=== PATIENT | male | born 1980 | race Two or more races ===

== ENCOUNTER 2022-03-13 06:05 | Emergency (ER) | payer BC ==
[~2022-03-13] VITALS: Ht 182.9 cm; Wt 98.4 kg
--- NOTE | 2022-03-13 06:25 | NUR ---
BIBS PT A/OX3, C/O "RACING HEART" PT STATES HAS A HISTORY OF ANXIETY. DENIES CP/SOB.
[2022-03-13] MEDS ORDERED: LORAZEPAM 1 MG TABLET PO ONE ×2 (06:30→07:30)
[2022-03-13] MEDS ORDERED: LORAZEPAM 0.5 MG TABLET ONE ×2 (06:32→07:10)
--- NOTE | 2022-03-13 07:21 | NUR ---
PT DECLINED IV TO BE STARTED AT THIS TIME. STATES, "I WILL WAIT TO SEE IF MEDICTION (ATIVAN) WORKS."
[2022-03-13 07:23] LABS: BASOPHILS # (AUTO) 0.1 K/uL (0.0-0.2); BASOPHILS % (AUTO) 1.2 % (0.0-2.0); EOSINOPHILS % (AUTO) 6.8 % (0.0-6.0); HEMATOCRIT 41 % (39-51); HEMOGLOBIN 14.2 g/dL (13.5-17.5); LYMPHOCYTES # (AUTO) 1.6 K/uL (0.8-4.8); LYMPHOCYTES % (AUTO) 28.3 % (20.0-44.0); MEAN CORPUSCULAR HGB CONC 35 g/dl (31.0-36.0); MEAN CORPUSCULAR VOLUME 83 fL (80-96); MONOCYTES # (AUTO) 0.5 K/uL (0.1-1.30); MONOCYTES % (AUTO) 8.6 % (2.0-12.0); NEUTROPHILS # (AUTO) 3.2 K/uL (1.8-8.9); NEUTROPHILS % (AUTO) 55.1 % (43.0-81.0); PLATELET COUNT (AUTO) 239 K/uL (150-450); RED BLOOD CELL COUNT(AUTO) 4.88 MIL/uL (4.5-6.0); WHITE BLOOD COUNT (AUTO) 5.8 K/uL (4.3-11.0)
--- NOTE | 2022-03-13 07:27 | NUR ---
LINE MANAGER AT BEDSIDE
[2022-03-13 07:54] LABS: CALCIUM, SERUM 8.8 mg/dL (8.5-10.1); CARBON DIOXIDE 24 mmol/L (21-32); CHLORIDE 106 mmol/L (98-107); CREATININE 0.8 mg/dL (0.6-1.3); GLUCOSE 191 mg/dL (74-106); POTASSIUM 3.5 mmol/L (3.5-5.1); SODIUM SERUM 140 mmol/L (136-145); UREA NITROGEN, BLOOD 11 mg/dL (7-18)
--- NOTE | 2022-03-13 08:08 | NUR ---
Patient discharged to home in stable condition. Written and verbal after care instructions given. Patient verbalizes understanding of instruction.
[2022-03-13 08:09] VITALS: BP 150/89
[2022-03-13 09:17] LABS: THYROID STIMULATING HORMONE 1.259 uIU/mL (0.358-3.74)
== END 2022-03-13 08:09 | disposition home or self-care (01) ==
LOC: ER 06:15
DX: F41.9 Anxiety disorder, unspecified (principal)
CPT/HCPCS: 36415; 71045-TC; 80048-TC; 83735-TC; 84443-TC; 84484-TC; 85025-TC; 87081-TC

== ENCOUNTER 2024-06-04 23:34 | Emergency (ER) | payer BC, OTHER ==
[~2024-06-04] VITALS: Ht 175.3 cm; Wt 113.4 kg
[2024-06-05] MEDS ORDERED: IBUP-1953 PO (01:29)
[2024-06-05 01:37] VITALS: BP 161/98; TEMP 98.5; O2SAT 98
== END 2024-06-05 01:37 | disposition home or self-care (01) ==
LOC: ER 23:37
DX: S62.396A Other fracture of fifth metacarpal bone, right hand, initial encounter for closed fracture (principal); F41.9 Anxiety disorder, unspecified; W22.01XA Walked into wall, initial encounter; Y93.89 Activity, other specified; Y92.89 Other specified places as the place of occurrence of the external cause; Y99.8 Other external cause status
CPT/HCPCS: 73130-TC